=== PATIENT | male | born 1995 | race Hispanic/Latino ===

== ENCOUNTER 2018-03-07 08:59 | Emergency (ER) | payer SELFPAY ==
[2018-03-07 11:14] LABS: AMPHET/METH SCREEN,URINE NEGATIVE (NEGATIVE); BARBITURATE SCREEN, URINE NEGATIVE (NEGATIVE); BENZODIAZEPINES SCREEN,URINE NEGATIVE (NEGATIVE); CANNABINOID SCREEN,URINE NEGATIVE (NEGATIVE); COCAINE SCREEN,URINE NEGATIVE (NEGATIVE); OPIATE SCREEN,URINE NEGATIVE (NEGATIVE); PHENCYCLIDINE SCREEN,URINE NEGATIVE (NEGATIVE)
== END 2018-03-07 11:31 | disposition home or self-care (01) ==
LOC: EDH 08:59
DX: S69.81XA Other specified injuries of right wrist, hand and finger(s), initial encounter (principal); S09.8XXA Other specified injuries of head, initial encounter; E11.9 Type 2 diabetes mellitus without complications; I10 Essential (primary) hypertension; Z79.4 Long term (current) use of insulin; Z72.0 Tobacco use; Z88.0 Allergy status to penicillin; Z91.030 Bee allergy status; V49.40XA Driver injured in collision with unspecified motor vehicles in traffic accident, initial encounter; Y93.89 Activity, other specified; Y92.89 Other specified places as the place of occurrence of the external cause; Y99.8 Other external cause status
CPT/HCPCS: 70450; 72125; 73110; 80305

== ENCOUNTER 2018-12-23 18:27 | Inpatient (IN) | payer SELFPAY ==
[~2018-12-23] VITALS: Ht 167.6 cm; Wt 99.4 kg
[2018-12-23 19:22] LABS: BASOPHILS % (AUTO) 0.5 % (0.0-5.0); EOSINOPHILS % (AUTO) 2.2 % (0.0-8.0); LYMPHOCYTES % (AUTO) 16.5 % (21.0-51.0); MEAN CORPUSCULAR HEMOGLOBIN 30.8 pg (27.0-33.0); MEAN CORPUSCULAR HGB CONC 34.6 g/dL (32.0-36.0); MEAN CORPUSCULAR VOLUME 88.9 fL (79-99); MONOCYTES % (AUTO) 10.7 % (3.0-13.0); NEUTROPHILS % (AUTO) 70.1 % (40.0-77.0); NUCLEATED RED BLOOD CELLS 0.1 % (0.0-0.19); PLATELET COUNT (AUTO) 266 K/uL (130-400); RED BLOOD CELL COUNT(AUTO) 4.95 MIL/uL (4.50-6.20); RED CELL DISTRIBUTION WIDTH 12.7 % (11.0-15.5); WHITE BLOOD COUNT (AUTO) 13.3 K/uL (4.8-10.8)
[2018-12-23 19:39] LABS: INR 0.87 (0.85-1.15); PARTIAL THROMBOPLASTIN TIME 26.4 SEC (26.3-35.5); PROTHROMBIN TIME 9.2 SEC (9.6-11.6)
[2018-12-23 19:41] LABS: CREATININE 0.8 mg/dL (0.5-1.5); POTASSIUM 4.3 mmol/L (3.5-5.1)
[2018-12-23] MEDS ORDERED: IOHEXOL-350 75 ML VIAL IV ONE (19:43)
[2018-12-23 19:45] LABS: ALBUMIN 3.3 g/dL (3.5-5.0); BILIRUBIN,TOTAL 0.4 mg/dL (0.2-1.0); TOTAL PROTEIN, SERUM 7.5 g/dL (6.0-8.3)
[2018-12-23] MEDS ORDERED: SODIUM CHLORIDE 0.9% 1000ML 3,000 ML IV ONE (19:53)
[2018-12-23 20:05] LABS: ABG OXYGEN SATURATION 93.1 % (95.0-99.0); BASE EXCESS,VENOUS BLOOD GAS -0.1 (-2.0-3.0); HCO3,VENOUS BLOOD GAS 21.7 (21.0-28.0); PCO2,VENOUS BLOOD GAS 28 (35-48); PH,VENOUS BLOOD GAS 7.502 (7.350-7.450)
[2018-12-23] MEDS ORDERED: CLINDAMYCIN 900 MG/D5% WATER 50 ML IV ONE (20:05)
[2018-12-23] MEDS ORDERED: ONDANSETRON HCL 4 MG/2 ML VIAL IV PRN (21:45)
[2018-12-23] MEDS ORDERED: ACETAMINOPHEN 325 MG TAB PO PRN ×2 (21:45)
[2018-12-23] MEDS ORDERED: LACTULOSE 20 GM/30 ML UDCUP PO PRN (21:45)
[2018-12-23] MEDS ORDERED: INSULIN HUMULIN R 100 UNIT/ML 3ML ONE (22:14)
[2018-12-23] MEDS ORDERED: MORPHINE SULFATE 2 MG/ML 1ML SYG ONE (23:55)
[2018-12-23] MEDS ORDERED: ONDANSETRON HCL 4 MG/2 ML VIAL ONE (23:55)
[2018-12-24] VITALS (25 sets, daily range): BP systolic 89–134; BP diastolic 56–81
[2018-12-24] MEDS ORDERED: VANCOMYCIN PROTOCOL PER PHARMACY IV SCH (00:15)
[2018-12-24] MEDS ORDERED: SODIUM CHLORIDE 0.9% 1000ML 1,000 ML IV ONE (01:23)
[2018-12-24 01:46] LABS: APPEARANCE,URINE Clear (CLEAR); BILIRUBIN,URINE Negative (NEGATIVE); COLOR,URINE Yellow (YELLOW); GLUCOSE, URINE (UA) >=1000 mg/dL (NEGATIVE); KETONES,URINE 40 mg/dL (NEGATIVE); LEUKOCYTE ESTERASE ,URINE Negative (NEGATIVE); NITRATE,URINE Negative (NEGATIVE); OCCULT BLOOD,URINE Negative (NEGATIVE); PH,URINE 6.5 (5.0-8.0); PROTEIN,URINE Negative (NEGATIVE)
[2018-12-24 02:10] LABS: BACTERIA,URINE Rare /HPF (None Seen); SQUAMOUS EPITHELIAL CELL,UR 0-2 /HPF (0-2); WBC,URINE 0-1 /HPF (0-1)
[2018-12-24 04:45] LABS: CREATININE 0.5 mg/dL (0.5-1.5); POTASSIUM 3.9 mmol/L (3.5-5.1)
[2018-12-24 05:16] LABS: BASOPHILS % (AUTO) 0.6 % (0.0-5.0); EOSINOPHILS % (AUTO) 2.1 % (0.0-8.0); HEMATOCRIT 37.6 % (42-54); LYMPHOCYTES % (AUTO) 13.3 % (21.0-51.0); MEAN CORPUSCULAR HEMOGLOBIN 30.5 pg (27.0-33.0); MEAN CORPUSCULAR HGB CONC 34.8 g/dL (32.0-36.0); MEAN CORPUSCULAR VOLUME 87.8 fL (79-99); MONOCYTES % (AUTO) 12.3 % (3.0-13.0); NEUTROPHILS % (AUTO) 71.7 % (40.0-77.0); PLATELET COUNT (AUTO) 229 K/uL (130-400); RED BLOOD CELL COUNT(AUTO) 4.28 MIL/uL (4.50-6.20); RED CELL DISTRIBUTION WIDTH 12.8 % (11.0-15.5); WHITE BLOOD COUNT (AUTO) 12.2 K/uL (4.8-10.8)
[2018-12-24] MEDS: INSULIN HUMULIN R 100 UNIT/ML 3ML SQ SCH ×4 (07:30→20:42)
[2018-12-24] MEDS: SODIUM CHLORIDE 0.9% 1000ML 1,000 ML IV SCH ×3 (07:38→19:45)
[2018-12-24 07:39] LABS: ABG OXYGEN SATURATION 83.6 % (95.0-99.0); BASE EXCESS,VENOUS BLOOD GAS -2.9 (-2.0-3.0); HCO3,VENOUS BLOOD GAS 22.1 (21.0-28.0); PCO2,VENOUS BLOOD GAS 40 (35-48); PH,VENOUS BLOOD GAS 7.364 (7.350-7.450)
[2018-12-24] MEDS ORDERED: VANCOMYCIN 1GM+NS 250ML 250 ML IV ONE ×2 (07:43→21:45)
[2018-12-24] MEDS: POLYETHYLENE GLYCOL 3350 17 GM POWD.PACK PO SCH (09:00)
[2018-12-24] MEDS: ENOXAPARIN SODIUM 40 MG/0.4 ML SYRINGE SQ SCH (09:00)
[2018-12-24] MEDS: FAMOTIDINE 20MG TAB 20 MG TAB PO SCH ×2 (09:00→19:45)
[2018-12-24] MEDS ORDERED: LOSA25TA41 PO (09:15)
[2018-12-24] MEDS ORDERED: INSU100I15 SQ (09:15)
[2018-12-24] MEDS ORDERED: METF-444 PO (09:15)
--- NOTE | 2018-12-24 09:21 | NUR ---
CONSTANZA APODACA MD REGARDING CONSULT
[2018-12-24] MEDS ORDERED: VANCOMYCIN 1.5 GM in SODIUM CHLORIDE 0.9% 250 ML IV SCH (10:00)
[2018-12-24] MEDS ORDERED: COMPOUND IV REFRIGERATED 1 EACH IVSOLN MISC PRN (10:15)
--- NOTE | 2018-12-24 15:34 | NUR ---
D/C PLAN CM spoke to pt regarding d/c planning. Pt lives with uncle. States he is ind. with ADL's. Denies having any DME. CM provided pt with [employer] packet. CM aske pt about assistance with wound care. pt is pending I & D. States his uncle or other family member can assist with wound care. Plan to home. CM to f/u. Addendum: 12/24/18 at 1537 by SADE VALLE CM Amended: Links added.
[2018-12-24] MEDS ORDERED: BUPIVACAINE/PF 0.25% 30ML VIAL IJ ONE (16:40)
[2018-12-24] MEDS ORDERED: SUCCINYLCHOLINE 200MG/10ML SYR ONE (16:43)
[2018-12-24] MEDS ORDERED: LIDOCAINE PF 2% 5ML ABBOJECT ONE (16:43)
[2018-12-24] MEDS ORDERED: ONDANSETRON HCL 4 MG/2 ML VIAL ONE (16:45)
[2018-12-24] MEDS ORDERED: PROPOFOL 10 MG/ML 20ML VIAL IV ONE (16:46)
[2018-12-24] MEDS ORDERED: DEXAMETHASONE SOD PHOSPHATE 10MG/ML 1ML VIAL ONE (16:46)
[2018-12-24] MEDS ORDERED: GLYCOPYRROLATE 1 MG/5 ML SYRINGE ONE (16:46)
[2018-12-24] MEDS ORDERED: FENTANYL CITRATE PF 50 MCG/1 ML 2ML VIAL ONE (16:47)
[2018-12-24] MEDS ORDERED: ROCURONIUM 10MG/1ML SYR 10 MG/ML ML ONE (16:47)
[2018-12-24] MEDS ORDERED: NEOSTIGMINE 5MG/5ML SYR IV ONE (16:47)
[2018-12-24] MEDS ORDERED: MIDAZOLAM HCL 1 MG/ML 2ML VIAL ONE (16:47)
[2018-12-24] MEDS ORDERED: BACITRACIN 50,000 UNIT VIAL ONE (17:26)
--- NOTE | 2018-12-24 18:11 | NUR ---
blood sugar 185
[2018-12-24] MEDS ORDERED: MEPERIDINE-PF 25 MG/ML SYG ONE (18:22)
[2018-12-24] MEDS: INSULIN GLARGINE 100 UNITS/ML 10 ML VIAL SQ SCH (19:45)
[2018-12-24] MEDS: VANCOMYCIN 1.5 GM in SODIUM CHLORIDE 0.9% 250 ML IV SCH (19:45)
[2018-12-24] MEDS: MORPHINE SULFATE 2 MG/ML 1ML SYG IVP PRN (20:45)
[2018-12-25] VITALS (7 sets, daily range): BP systolic 97–128; BP diastolic 46–76
[2018-12-25] MEDS: MORPHINE SULFATE 2 MG/ML 1ML SYG IVP PRN ×4 (00:24→20:58)
[2018-12-25] MEDS: SODIUM CHLORIDE 0.9% 1000ML 1,000 ML IV SCH ×3 (04:39→23:38)
[2018-12-25] MEDS: INSULIN HUMULIN R 100 UNIT/ML 3ML SQ SCH ×4 (06:00→20:41)
[2018-12-25] MEDS: VANCOMYCIN 1.5 GM in SODIUM CHLORIDE 0.9% 250 ML IV SCH ×2 (09:36→20:39)
[2018-12-25] MEDS: POLYETHYLENE GLYCOL 3350 17 GM POWD.PACK PO SCH (09:37)
[2018-12-25] MEDS: FAMOTIDINE 20MG TAB 20 MG TAB PO SCH ×2 (09:37→20:39)
[2018-12-25] MEDS: ENOXAPARIN SODIUM 40 MG/0.4 ML SYRINGE SQ SCH (09:38)
[2018-12-25] MEDS ORDERED: HYDROCODONE/ACETAMINOPHEN 5/325 MG TAB PO PRN (13:30)
[2018-12-25] MEDS ORDERED: METFORMIN HCL 500 MG TABLET ONE (15:52)
[2018-12-25] MEDS: METFORMIN HCL 500 MG TABLET PO SCH (15:53)
--- NOTE | 2018-12-25 16:26 | NUR ---
[facility] consult Patient assessed as ordered. Patient s/p I & D of abscess to left buttock. Wound currently being packed with 1/2" iodoform strip gauze. [facility] in agreement with wound care and no further recommendations required at this time. Addendum: 12/25/18 at 1628 by JEFRY POND RN/BALBIR Amended: Links added.
[2018-12-25] MEDS: INSULIN GLARGINE 100 UNITS/ML 10 ML VIAL SQ SCH (20:40)
[2018-12-26] MEDS: MORPHINE SULFATE 2 MG/ML 1ML SYG IVP PRN (00:44)
[2018-12-26 03:00] VITALS: BP 123/74
[2018-12-26 05:06] LABS: BASOPHILS % (AUTO) 0.9 % (0.0-5.0); EOSINOPHILS % (AUTO) 4.3 % (0.0-8.0); HEMATOCRIT 38.3 % (42-54); LYMPHOCYTES % (AUTO) 29.8 % (21.0-51.0); MEAN CORPUSCULAR HEMOGLOBIN 30.9 pg (27.0-33.0); MEAN CORPUSCULAR HGB CONC 35.3 g/dL (32.0-36.0); MEAN CORPUSCULAR VOLUME 87.5 fL (79-99); NUCLEATED RED BLOOD CELLS 0.1 % (0.0-0.19); PLATELET COUNT (AUTO) 287 K/uL (130-400); RED BLOOD CELL COUNT(AUTO) 4.37 MIL/uL (4.50-6.20); RED CELL DISTRIBUTION WIDTH 12.7 % (11.0-15.5); WHITE BLOOD COUNT (AUTO) 9.5 K/uL (4.8-10.8)
[2018-12-26 05:08] LABS: HEMOGLOBIN A1C 11.8 % (4.0-6.0)
[2018-12-26 05:28] LABS: CREATININE 0.6 mg/dL (0.5-1.5); POTASSIUM 3.7 mmol/L (3.5-5.1)
[2018-12-26] MEDS: INSULIN HUMULIN R 100 UNIT/ML 3ML SQ SCH ×3 (05:36→16:02)
[2018-12-26] MEDS ORDERED: GLIPIZIDE 5 MG TABLET PO SCH (07:30)
[2018-12-26 08:00] VITALS: BP 129/89
[2018-12-26] MEDS: FAMOTIDINE 20MG TAB 20 MG TAB PO SCH (09:16)
[2018-12-26] MEDS: ENOXAPARIN SODIUM 40 MG/0.4 ML SYRINGE SQ SCH (09:17)
[2018-12-26] MEDS: METFORMIN HCL 500 MG TABLET PO SCH ×2 (09:17→16:03)
[2018-12-26] MEDS: POLYETHYLENE GLYCOL 3350 17 GM POWD.PACK PO SCH (09:17)
[2018-12-26] MEDS: VANCOMYCIN 1.5 GM in SODIUM CHLORIDE 0.9% 250 ML IV SCH (09:47)
[2018-12-26 12:00] VITALS: BP 124/66
[2018-12-26] MEDS ORDERED: LEVO500T2 PO (12:07)
[2018-12-26 15:56] VITALS: BP 141/79
--- NOTE | 2018-12-26 17:55 | NUR ---
DISCHARGE DISCHARGE TEACHING DONE WITH PATIENT AND FATHER USING TEACHBACK METHOD, VERBALIZED UNDERSTANDING. NO NOTED SOB OR DISTRESS. DRESSING TO LEFT BUTTOCK CHANGED, TEACHING DONE WITH PATIENT AND FATHER , VERBALIZED UNDERSTANDING. NEW MEDICATION ADMINISTRATION TEACHING DONE WITH PATIENT, VERBALIZED UNDERSTANDING. PT AWARE OF NEED TO SET UP APPOINTMENT WITH DR. JOHNSON AND PCP. IV REMOVED, CATH TIP INTACT. PENDING TO BE WHEELED DOWNSTAIRS AND TRANSFER OUT IN PRIVATE VEHICLE.
== END 2018-12-26 18:20 | disposition home or self-care (01) | DRG 872 ==
LOC: EDH 18:27 → EDHIP 18:28 → 4BH 12-24 08:17
PROVIDERS: ADMIT Family Medicine; ATTEND Family Medicine
PROC: 0Y910ZZ Drainage of Left Buttock, Open Approach (ICD-10-PCS; principal; 2018-12-24 17:20)
DX: A41.9 Sepsis, unspecified organism (principal); L02.215 Cutaneous abscess of perineum; L03.315 Cellulitis of perineum; E66.01 Morbid (severe) obesity due to excess calories; E11.9 Type 2 diabetes mellitus without complications; I10 Essential (primary) hypertension; B95.1 Streptococcus, group B, as the cause of diseases classified elsewhere; Z68.35 Body mass index [BMI] 35.0-35.9, adult; Z88.0 Allergy status to penicillin
CPT/HCPCS: 36415; 36600; 71045; 74177; 80048; 80053; 80202; 81001; 82010; 82803; 82948; 83036; 83605; 85025; 85610; 85730; 87040; 87070; 87076; 87088; 87205; A6266; G0378; J0330; J1100; J1650; J1815; J2001; J2175; J2250; J2405; J2704; J2710; J3010; J3370; J3490; J7030; Q9967

== ENCOUNTER 2019-04-11 20:24 | Emergency (ER) | payer BC ==
[~2019-04-11 20:24] MED LIST: INSU100I15 SQ; LEVO500T2 PO; LOSA25TA41 PO; METF-444 PO
[2019-04-11 22:27] LABS: BASOPHILS % (AUTO) 0.4 % (0.0-5.0); EOSINOPHILS % (AUTO) 0.6 % (0.0-8.0); HEMATOCRIT 42.9 % (42-54); LYMPHOCYTES % (AUTO) 16.8 % (21.0-51.0); MEAN CORPUSCULAR HGB CONC 34.3 g/dL (32.0-36.0); MEAN CORPUSCULAR VOLUME 84.6 fL (79-99); MONOCYTES % (AUTO) 11.2 % (3.0-13.0); NEUTROPHILS % (AUTO) 70.7 % (40.0-77.0); PLATELET COUNT (AUTO) 242 K/uL (130-400); RED BLOOD CELL COUNT(AUTO) 5.07 MIL/uL (4.50-6.20); WHITE BLOOD COUNT (AUTO) 11.8 K/uL (4.8-10.8)
[2019-04-11 22:39] LABS: CREATININE 0.8 mg/dL (0.5-1.5); POTASSIUM 3.6 mmol/L (3.5-5.1)
[2019-04-11] MEDS ORDERED: SODIUM CHLORIDE 0.9% 1000ML 1,000 ML IV ONE (22:39)
[2019-04-11] MEDS ORDERED: ACETAMINOPHEN EXTRA STRENGTH 500 MG TABLET ONE (22:39)
[2019-04-11 22:44] LABS: BILIRUBIN,TOTAL 0.6 mg/dL (0.2-1.0); TOTAL PROTEIN, SERUM 6.7 g/dL (6.0-8.3)
[2019-04-11 22:53] LABS: APPEARANCE,URINE Cloudy (CLEAR); BILIRUBIN,URINE Negative (NEGATIVE); COLOR,URINE Yellow (YELLOW); GLUCOSE, URINE (UA) >=1000 mg/dL (NEGATIVE); KETONES,URINE >=80 mg/dL (NEGATIVE); LEUKOCYTE ESTERASE ,URINE Moderate (NEGATIVE); NITRATE,URINE Negative (NEGATIVE); OCCULT BLOOD,URINE Negative (NEGATIVE); PH,URINE 5.5 (5.0-8.0); PROTEIN,URINE POS 1+ mg/dL (NEGATIVE)
[2019-04-11 23:09] LABS: BACTERIA,URINE None Seen /HPF (None Seen); MUCUS,URINE Rare LPF (None Seen); RBC,URINE 0-1 /HPF (0-1); SQUAMOUS EPITHELIAL CELL,UR Few /HPF (0-2); YEAST,URINE BUDDING Rare /HPF (None Seen)
[2019-04-12] MEDS ORDERED: LIDOCAINE 1%-EPI 1:100,000 20 ML VIAL IJ ONE (00:18)
[2019-04-12] MEDS ORDERED: CLINDAMYCIN 600 MG/D5% WATER 50 ML IV ONE (01:58)
== END 2019-04-12 02:50 | disposition home or self-care (01) ==
LOC: EDH 20:24
DX: L02.31 Cutaneous abscess of buttock (principal); E11.9 Type 2 diabetes mellitus without complications; I10 Essential (primary) hypertension; Z88.0 Allergy status to penicillin; Z91.030 Bee allergy status
CPT/HCPCS: 10060; 36415; 80053; 81001; 82948; 85025; 96365; 99284; J3490 ×2; J7030